=== PATIENT | female | born 1990 | race Caucasian/White ===

== ENCOUNTER 2018-12-11 17:57 | Emergency (ER) | payer SELFPAY ==
[~2018-12-11] VITALS: Ht 160 cm; Wt 62.8 kg
[~2018-12-11 17:57] MED LIST: PNV; PREN1TAB9 PO
[2018-12-11 18:04] VITALS: BP 117/73; PULSE 86; RESP 20; Ht 160 cm; Wt 62.8 kg
== END 2018-12-11 20:45 | disposition left against medical advice (07) ==
LOC: FTE 17:57
DX: Z53.21 Procedure and treatment not carried out due to patient leaving prior to being seen by health care provider (principal)